=== PATIENT | female | born 1995 | race Caucasian/White ===

== ENCOUNTER 2017-07-20 09:30 | Emergency (ER) | payer BC, OTHER ==
[~2017-07-20] VITALS: Ht 170.2 cm; Wt 75.4 kg
[2017-07-20 09:43] VITALS: TEMP 36.9; Ht 170.2 cm; Wt 75.4 kg
--- NOTE | 2017-07-20 10:17 | DIAGNOSTIC IMAGING REPORT ---
L WRIST W/NAVICULAR MIN 3 VIEWS CLINICAL HISTORY: Left wrist pain following injury. COMPARISON: None FINDINGS: No carpal bone fracture is noted. There is a lucency through the base of the radial styloid consistent with an acute nondisplaced fracture. No additional fractures are identified. IMPRESSION: Acute nondisplaced distal left radial fracture which extends through the base of the radial styloid. Electronically signed by: Cruzito Tomlin M.D. 07/20/2017 10:15 AM Dictated Date/Time: 07/20/2017 10:12 AM
[2017-07-20] MEDS ORDERED: HYDR-5688 PO (10:38)
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
[2017-07-20 11:23] VITALS: BP 119/75; PULSE 72; O2SAT 98
== END 2017-07-20 11:23 | disposition home or self-care (01) ==
LOC: C.EDB 09:31 → C.EDC 11:23
DX: S52.592A Other fractures of lower end of left radius, initial encounter for closed fracture (principal); W19.XXXA Unspecified fall, initial encounter

== ENCOUNTER → 2017-07-28 | Outpatient (CLI) | payer BC ==
[~2017-07-28] MED LIST: HYDR-5688 PO
--- NOTE | 2017-07-28 11:09 | DIAGNOSTIC IMAGING REPORT ---
L WRIST MIN 3 VIEWS ROUTINE CLINICAL HISTORY: 21 years-old Female presenting with LEFT WRIST FX. TECHNIQUE: Frontal, oblique, and lateral views of the left wrist were obtained. COMPARISON: 07/20/2017. FINDINGS: The previously noted nondisplaced fracture of the distal radius across the base of the radial styloid is minimally apparent. No malalignment. No new fracture deformity. No advanced degenerative change. No radiographic soft tissue abnormality. IMPRESSION: Minimally apparent nondisplaced fracture of the distal radius across the base of the radial styloid. This may be better demonstrated on MR if there is need for further evaluation. Electronically signed by: Enrique Cannon M.D. 07/28/2017 11:08 AM Dictated Date/Time: 07/28/2017 11:06 AM
== END | disposition home or self-care (01) ==
LOC: C.RDSM 11:00
PROVIDERS: ATTEND Physician Assistant
DX: S52.512A Displaced fracture of left radial styloid process, initial encounter for closed fracture (principal); X58.XXXA Exposure to other specified factors, initial encounter